=== PATIENT | female | born 1995 | race Caucasian/White ===

== ENCOUNTER 2020-09-03 19:18 | Emergency (ER) | payer MEDICAID ==
[~2020-09-03] VITALS: Ht 149.9 cm; Wt 112.0 kg
[2020-09-03 19:36] VITALS: BP 128/80
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
[2020-09-03] MEDS ORDERED: KETOROLAC TROMETHAMINE INJ 60 MG/2 ML VIAL IM ONE (20:00)
[2020-09-03] MEDS ORDERED: HYDROCODONE/APAP 5/325MG TABLET PO ONE (20:00)
[2020-09-03] MEDS ORDERED: HYDROCODONE/APAP 5/325MG TABLET ONE (20:03)
[2020-09-03] MEDS ORDERED: KETOROLAC TROMETHAMINE INJ 30 MG/ML VIAL ONE (20:03)
[2020-09-03] MEDS ORDERED: HYDR-3972 PO ×2 (22:40→22:49)
[2020-09-03] MEDS ORDERED: NAPR-1164 PO ×2 (22:40→22:49)
--- NOTE | 2020-09-03 23:05 | NUR ---
Patient discharged to home in stable condition. Written and verbal after care instructions given. Patient verbalizes understanding of instruction.
== END 2020-09-03 23:08 | disposition home or self-care (01) ==
LOC: ER 19:24
DX: S32.2XXA Fracture of coccyx, initial encounter for closed fracture (principal); J45.909 Unspecified asthma, uncomplicated; F32.9 Major depressive disorder, single episode, unspecified; Z79.899 Other long term (current) drug therapy; V69.88XA Occupant (driver) (passenger) of heavy transport vehicle injured in other specified transport accidents, initial encounter; Y93.I9 Activity, other involving external motion; Y92.89 Other specified places as the place of occurrence of the external cause; Y99.8 Other external cause status
CPT/HCPCS: 72220; 84703; 96372; 99284; J1885